=== PATIENT | female | born 1955 | race Caucasian/White ===

== ENCOUNTER 2018-05-31 07:52 | Inpatient (IN) | payer MEDICARE ==
--- NOTE | 2018-05-30 23:30 | NUR ---
CONTINUES RESTLESS/AGITATED AND GRABBING FOR VENT CIRCUITS/LINES.DIPROVAN INCREASED TO 45MCG/KG/MIN.
[2018-05-31] VITALS (58 sets, daily range): BP systolic 71–166; BP diastolic 51–86; BMI 29.1
[~2018-05-31] VITALS: Ht 167.6 cm; Wt 80.5 kg
--- NOTE | 2018-05-31 | NUR ---
REASSESSMENT COMPLETED WITH NO CHANGES OBSERVED. ROUSES SLIGHTLY TO TACTILE STIMULI WITH HEAD AND EXTREMITY MOVEMENT. ETT @22CM MID LIPLINE/SECURED/PATENT AND CONNECTED TO [facility] VENT WITH SETTINGS ORDERED. RESP EVEN AND UNLABORED. NO DISTRESS OBSERVED. VSS. SR UP X 2. WRIST RESTRAINTS INTACT FOR PATIENT SAFETY.
--- NOTE | 2018-05-31 08:05 | NUR ---
ARRIVED VIA EMS FROM [facility] [place]. INGESTION OF UNKNOWN SUBSTANCE/AMOUNT. SI ATTEMPT. PT INTUBATED/VENTILATED ON ARRIVAL. CVL TO R GROIN, PIV TO L HAND. YANES AND OG IN PLACED. NSR ON MONITOR, BP 148/72, SAT 100%, HR 77. NOREPI GTT @ 15MCG/MIN, DOPAMINE GTT AT 20MCG/MIN.
--- NOTE | 2018-05-31 08:13 | NUR ---
SODIUM BICARB [address] GATES
--- NOTE | 2018-05-31 08:15 | NUR ---
PROPOFOL GTT STARTED AT 8MCG/MIN PER DR GATES
--- NOTE | 2018-05-31 08:20 | NUR ---
DOPAMINE GTT DECREASED TO 10MCG/MIN
--- NOTE | 2018-05-31 08:44 | NUR ---
DOPAMINE GTT OFF
[2018-05-31] MEDS ORDERED: NEURONTIN 300300 MG PO (08:54)
[2018-05-31] MEDS ORDERED: CYMBALTA30 MG (08:54)
[2018-05-31] MEDS ORDERED: PROPRANOLOL HCL20 MG (08:55)
[2018-05-31] MEDS ORDERED: AMRIX30 MG (08:55)
[2018-05-31] MEDS ORDERED: PRAVACHOL20 MG (08:55)
[2018-05-31] MEDS ORDERED: SYNTHROID50 MCG (08:56)
[2018-05-31 09:24] LABS: BASOPHILS 0.2 % (0-2); EOSINOPHILS 0 % (0-7); HEMATOCRIT 37.4 % (36.0-48.0); HEMOGLOBIN 12.6 g/dL (12-16); IMMATURE GRANULOCYTES 0.3 % (0-5); LYMPHOCYTES 15.2 % (15-50); MCH 29.9 pg (26.0-34.0); MCHC 33.7 g/dL (31.0-37.0); MCV 88.6 fL (80.0-100.0); MEAN PLATELET VOLUME 9.7 fL (7.4-10.4); MONOCYTES 7.8 % (2-11); NEUTROPHILS 76.5 % (40-80); PLATELET COUNT 216 10x3/uL (130-400); RBC 4.22 10x6/uL (4.00-5.40); RDW 13.2 % (11.5-14.5); WBC 15.9 10x3/uL (4.8-10.8)
--- NOTE | 2018-05-31 09:35 | NUR ---
BP 166/86, NOREPI DECREASED TO 10MCG/MIN
--- NOTE | 2018-05-31 09:57 | NUR ---
SPOKE WITH CORIE AT POISON CONTROL PER DR. GATES AT THIS TIME.
--- NOTE | 2018-05-31 10:17 | NUR ---
BP137/62, NOREPI DECREASED TO 8MCG/MIN
--- NOTE | 2018-05-31 10:40 | NUR ---
PROPOFOL INCREASED TO 10MCG/MIN
[2018-05-31 11:34] LABS: ALBUMIN 2.6 g/dL (3.4-5.0); ALKALINE PHOSPHATASE 94 U/L (46-116); ALT (SGPT) 139 U/L (10-68); BILIRUBIN - TOTAL 0.28 mg/dL (0.2-1.3); CALC OSMOLALITY 292 mosm/kg (275-300); CARBON DIOXIDE 27.3 mmol/L (21.0-32.0); CHLORIDE - SERUM 108 mmol/L (98-107); CREATININE - SERUM 1.1 mg/dL (0.6-1.3); GLUCOSE 170 mg/dL (74-106); POTASSIUM - SERUM 3.6 mmol/L (3.5-5.1); PROTEIN - SERUM 5.6 g/dL (6.4-8.2); SODIUM 143 mmol/L (136-145); TROPONIN-I < 0.017 ng/mL (0.000-0.060); UREA NITROGEN 23 mg/dL (7-18); eGFR NON AFRICAN AMERICAN 53 mL/min (90-120)
[2018-05-31 11:37] LABS: CALCIUM 6.8 mg/dL (8.5-10.1); CKMB 405.4 U/L (0.0-3.6); CREATINE KINASE 21665 UL (21-215)
--- NOTE | 2018-05-31 11:40 | NUR ---
CRITICAL LAB CALLED BY [employer] TECH AT THIS TIME, CRITICAL CALCIUM OF 6.8. NOTIFIED EDM AT THIS TIME.
--- NOTE | 2018-05-31 11:50 | NUR ---
ARRIVED TO UNIT AT THIS TIME VIA STRETCHER FROM ER. PT ON VENT. NO ACUTE DISTRESS NOTED. PT FOLLOWS COMMANDS. WILL CONTINUE PLAN OF CARE.
--- NOTE | 2018-05-31 12:21 | NUR ---
PT SON JANEEN HERE, HISTORY RECIEVED FROM PTS SON. PTS SON STATES THAT PT HAS A HISTORY OF METH ABUSE. EMERGENCY CONTACT INFORMATION RECIEVED, CODE WORD ESTABLISHED.
[2018-05-31 12:40] LABS: UDS - AMPHET POSITIVE QUAL (NEGATIVE); UDS - BARB NEGATIVE QUAL (NEGATIVE); UDS - BENZO POSITIVE QUAL (NEGATIVE); UDS - COCAINE NEGATIVE QUAL (NEGATIVE); UDS - OPIATE NEGATIVE QUAL (NEGATIVE); UDS - PCP NEGATIVE QUAL (NEGATIVE); UDS - THC NEGATIVE QUAL (NEGATIVE)
[2018-05-31 12:46] LABS: APPEARANCE CLOUDY (CLEAR); COLOR YELLOW (YELLOW)
[2018-05-31 12:47] LABS: BILIRUBIN NEGATIVE (NEGATIVE); GLUCOSE NEGATIVE (NEGATIVE); KETONE NEGATIVE (NEGATIVE); NITRITE POSITIVE (NEGATIVE); PROTEIN 2+ mg/dL (NEGATIVE); UROBILINOGEN NORMAL (NORMAL)
[2018-05-31 12:48] LABS: BACTERIA MODERATE /hpf (NONE SEEN); EPITHELIAL CELLS 0-5 /hpf (0-5); RED CELLS - URINE 0-5 /hpf (0-5)
[2018-05-31 14:05] LABS: BASOPHILS 0.2 % (0-2); EOSINOPHILS 0 % (0-7); HEMATOCRIT 34.9 % (36.0-48.0); HEMOGLOBIN 11.6 g/dL (12-16); IMMATURE GRANULOCYTES 0.4 % (0-5); LYMPHOCYTES 18.6 % (15-50); MCH 29.5 pg (26.0-34.0); MCHC 33.2 g/dL (31.0-37.0); MCV 88.8 fL (80.0-100.0); MEAN PLATELET VOLUME 9.8 fL (7.4-10.4); MONOCYTES 10.6 % (2-11); NEUTROPHILS 70.2 % (40-80); PLATELET COUNT 210 10x3/uL (130-400); RBC 3.93 10x6/uL (4.00-5.40); RDW 13.1 % (11.5-14.5); WBC 13.7 10x3/uL (4.8-10.8)
--- NOTE | 2018-05-31 14:06 | NUR ---
NO ACUTE DISTRESS NOTED. NO CHANGE. TURNED Q2H. LEVOPHED AND DIPROVAN TITRATED TO ORDER. WILL CONTINUE PLAN OF CARE.
[2018-05-31 14:42] LABS: ALBUMIN 2.6 g/dL (3.4-5.0); ALKALINE PHOSPHATASE 92 U/L (46-116); ALT (SGPT) 145 U/L (10-68); BILIRUBIN - TOTAL 0.29 mg/dL (0.2-1.3); CALC OSMOLALITY 293 mosm/kg (275-300); CALCIUM 7.1 mg/dL (8.5-10.1); CARBON DIOXIDE 29.6 mmol/L (21.0-32.0); CHLORIDE - SERUM 108 mmol/L (98-107); CKMB 263.4 U/L (0.0-3.6); CREATININE - SERUM 1.1 mg/dL (0.6-1.3); GLUCOSE 159 mg/dL (74-106); MAGNESIUM - SERUM 2.1 mg/dL (1.8-2.4); POTASSIUM - SERUM 3.6 mmol/L (3.5-5.1); PROTEIN - SERUM 5.2 g/dL (6.4-8.2); SODIUM 144 mmol/L (136-145); TROPONIN-I 0.016 ng/mL (0.000-0.060); UREA NITROGEN 24 mg/dL (7-18); eGFR NON AFRICAN AMERICAN 53 mL/min (90-120)
[2018-05-31 14:46] LABS: CREATINE KINASE 20858 UL (21-215)
--- NOTE | 2018-05-31 16:15 | NUR ---
EPINEPHERINE STARTED AT THIS TIME PER DR COTO ORDERS WELL WILL TITRATE LEVOPHED OFF ALSO PER ORDERS. WILL CONTINUE PLAN OF CARE.
--- NOTE | 2018-05-31 18:14 | NUR ---
NO ACUTE DISTRESS NOTED. NO CHANGE. PT LYING IN BED ON VENT. FOLLOWS COMMANDS. TURNED Q2H. WILL CONTINUE PLAN OF CARE.
--- NOTE | 2018-05-31 18:35 | NUR ---
HARISH CARE PROVIDED AT THIS TIME WITH PARTIAL LINEN CHANGE. PT NOTED TO HAVE SMEAR BROWN BOWEL MOVEMENT. PT TURNED Q2H. FOLLOWS COMMANDS. NO ACUTE DISTRESS NOTED. WILL CONTINUE PLAN OF CARE.
--- NOTE | 2018-05-31 19:00 | NUR ---
PT SEDATED, EYES CLOSED. ROUSES SOME TO TACTILE STIMULI, RESPONDS WITH SOME HEAD AND EXTREMITY MOVEMENT. HOB UP 35 DEGREES. 7.5 ETT INTACT/PATENT AND SECURED AT 22CM MID LIP LINE. PLACEMENT VERIFIED WITH RT NOTES. ETT CONNECTED TO MECHANICAL VENT WITH SETTINGS ORDERED. LUNGS CTA, RESP EVEN AND UNLABORED. OG INTACT/SECURED CONNECTED TO LOW INTERMITTENT SUCTION WITH NO DRAINAGE OBSERFVED. VAP PROTOCOL OBSERVED. IV FLUIDS/TUBING LABELED/DATED AND CURRENT. MONITORS CONNECTED TO PATIENT WITH ALARMS SET. SIDE RAILS UP X 2 . SOFT WRIST RESTRAINTS INTACT BILAT FOR PT SAFETY. RESTRAINT AREAS/SKIN/PULSES AND BILAT CAP REFILL CHECKED AND LESS THAN 3 SECONDS. ASSESSED,
--- NOTE | 2018-05-31 21:00 | NUR ---
RESTING WITH EYES CLOSED, ROUSES SLIGHTLY TO TACTILE STIMULI WITH HEAD AND EXTREMITY MOVEMENT. ETT SECURED/PATENT AND CONNECTED TO [facility] VENT WITH SETTINGS ORDERED. NO CHANGES OBSERVED. SR UP X 2.
--- NOTE | 2018-05-31 22:00 | NUR ---
LEVOPHED TURNED OFF AT THIS TIME. B/P 119/61
--- NOTE | 2018-05-31 23:00 | NUR ---
REASSESSMENT COMPLETED PER FLOWSHEET WITH NO CHANGES OBSERVED. ETT SECURED/PATENT/CONNECTED TO [facility] VENT WITH SETTINGS ORDERED, NO DISTRESS OBSERVED.
[2018-06-01] VITALS (95 sets, daily range): BP systolic 75–143; BP diastolic 46–961; Ht 167.6 cm; Wt 80.5 kg
--- NOTE | 2018-06-01 01:00 | NUR ---
RESTING WITH EYES CLOSED, ROUSES TO TACTILE STIMULI. ETT SECURED/PATENT/CONNECTED TO [facility] VENT WITH SETTINGS ORDERED. NO DISTRESS OBSERVED. VSS. SR UP X 2 HOB UP 30 DEGREES
--- NOTE | 2018-06-01 01:00 | NUR ---
RESTING WITH EYES CLOSED. TURNED AND REPOSITIONED, DEPENDANT FOR ALL ADLS. NO DISTRESS OBSERVED.
--- NOTE | 2018-06-01 03:00 | NUR ---
REASSESSMENT COMPLETED PER FLOW SHEET WITH NO CHANGES OBSERVED. VSS. ETT PATENT/SECURED AND CONNECTED TO [facility] VENT WITH SETTINGS ORDERS. OG INTACT/SECURE/PATENT CONNECTED TO LOW INT SUCTION WITH NO DRAINAGE OBSERVED. PLACEMENT VERIFIED VIA AUSC. N ODISTRESS OBSERVED. SR UP X 2
--- NOTE | 2018-06-01 03:00 | NUR ---
REASSESSMENT COMPLETED PER FLOWSHEET NO CHANGES OBSERVED. NO DISTRESS OBSERVED.
--- NOTE | 2018-06-01 04:30 | NUR ---
NOTIFIED BY RT OF RESP RATE VENT SETTING CHANGE TO 12
[2018-06-01 05:06] LABS: BASOPHILS 0.3 % (0-2); EOSINOPHILS 0.2 % (0-7); HEMATOCRIT 31.7 % (36.0-48.0); HEMOGLOBIN 10.6 g/dL (12-16); IMMATURE GRANULOCYTES 0.3 % (0-5); LYMPHOCYTES 30.3 % (15-50); MCH 29.4 pg (26.0-34.0); MCHC 33.4 g/dL (31.0-37.0); MCV 88.1 fL (80.0-100.0); MEAN PLATELET VOLUME 10.1 fL (7.4-10.4); MONOCYTES 6.9 % (2-11); PLATELET COUNT 208 10x3/uL (130-400); RDW 13.1 % (11.5-14.5); WBC 11.7 10x3/uL (4.8-10.8)
--- NOTE | 2018-06-01 05:08 | NUR ---
RESTING WITH EYES CLOSED, ROUSES TO TACTILE STIMULI. EYES OPEN BRIEFLY. VSS. SR UP X 2. ETT INTACT/PATENT/SECURED CONNECTED TO [facility] VENT WITH SETTINGS ORDERED.
[2018-06-01 05:55] LABS: ALBUMIN 2.1 g/dL (3.4-5.0); ALKALINE PHOSPHATASE 83 U/L (46-116); ALT (SGPT) 122 U/L (10-68); BILIRUBIN - TOTAL 0.21 mg/dL (0.2-1.3); CALCIUM 7.3 mg/dL (8.5-10.1); CARBON DIOXIDE 31.3 mmol/L (21.0-32.0); CHLORIDE - SERUM 102 mmol/L (98-107); CREATININE - SERUM 0.9 mg/dL (0.6-1.3); GLUCOSE 179 mg/dL (74-106); PROTEIN - SERUM 4.9 g/dL (6.4-8.2); SODIUM 141 mmol/L (136-145); eGFR NON AFRICAN AMERICAN 67 mL/min (90-120)
[2018-06-01 05:59] LABS: CALC OSMOLALITY 285 mosm/kg (275-300); CREATINE KINASE 12470 UL (21-215); PHOSPHOROUS 1.4 mg/dL (2.5-4.9); POTASSIUM - SERUM 2.7 mmol/L (3.5-5.1); UREA NITROGEN 14 mg/dL (7-18)
--- NOTE | 2018-06-01 06:28 | NUR ---
ABIGAIL HAY APN PAGED RELATED TO ABNORMAL SERUM K+ AND PHOS
--- NOTE | 2018-06-01 07:15 | NUR ---
REPORT RECEIVED. ASSESSMENT COMPLETE PER FLOW SHEET. VSS. PT RESTING COMFORTABLY VSS ORAL ENDOTRACH CARE ADM WILL CONTINUE TO MONITOR
[2018-06-01 08:13] LABS: CKMB 27.7 U/L (0.0-3.6)
--- NOTE | 2018-06-01 08:47 | NUR ---
U/S AT BEDSIDE DENIES NEEDS. WILL CONTINUE TO MONITOR
--- NOTE | 2018-06-01 09:27 | NUR ---
DR WHEATLEY AT BEDSIDE. GIVEN UDPATE. NEW ORDERS RECEIVED. WILL ADM.
--- NOTE | 2018-06-01 11:15 | NUR ---
REASSESSMENT COMPLETE PER FLOW SHEET. VSS NO NEW CHANGES IWLL CONTINUE TO MONITOR
--- NOTE | 2018-06-01 13:15 | NUR ---
COMPLETE BB LINEN CHANGE ADM. LARGE BM NOTED. WILL CONTINUE TO MONITOR
--- NOTE | 2018-06-01 15:15 | NUR ---
REASSESSMENT COMPLETE PER FLOW SHEET. VSS. NO NEW CHANGES WILL CONTINUE TO MONITOR
--- NOTE | 2018-06-01 17:00 | NUR ---
DR WHEATLEY AT BEDSIDE ORDER TO KEEP EPI AT .5 OVERNIGHT AT THIS TIME SET RATE
--- NOTE | 2018-06-01 19:00 | NUR ---
RECEIVED PATIENT IN BED, RESTING WITH EYES CLOSED. ROUSES SOME TO VERBAL STIMUI WITH SHORT PERIODS OF EYE OPENING, RESPONDS TO QUESTIONS WITH A NOD OF HEAD. HOB UP 40 DEGREES. ETT INTACT/PATENT/SECURED AND CONNECTED TO [facility] VENT WITH SETTINGS ORDERED. RESP EVEN AND UNLABORED. VAP PROTOCOL OBSERVERED. OGT INTACT/SECURED/PATENT CONNECTEDT TO LOW INT SUCTION WITH NO DRAINAGE OBSERVED. VSS. NO SIGNS OF DISTRESS OBSERVED. MONITORS CONNECTED TO PATIENT WITH ALARMS SET. IV TUBING/FLUIDS DATED LABELED AND CURRENT. SR UP X 2
--- NOTE | 2018-06-01 19:00 | NUR ---
REPORT RECEIVED. CARE ASSUMED. RECEIVED PATIENT AWAKE AND ALERT. ORIENTED TO PERSON AND PLACE WITH SOME CONFUSION TO DATE/TIME AND SITUATION. PLEASANT. RE ORIENTS WELL , WITH SHORT TERM MEMORY DEFECIT OSERVED. SPEECH CLEAR AND APPROPRIATE. PERRL. ACCOUNTANT CONTROLLER = BILAT. FACE/SMILE SYMETRICAL. DENIES PAIN/HEADACHE/BLURRED VISION. VSS. BED IN LOW POSITOIN. SR UP X 2. BED ALARM ON AND FUNCTIONING. PT REMINDED TO NOT ATTEMPT SELF TRANSFERS. CALL LIGHT IN REACH, REORIENTED TO USE OF CALL LIGHT AND VERBALIZED UNDERSTANDING.
--- NOTE | 2018-06-01 21:00 | NUR ---
HOB UP 40 DEGREES. RESTING WITH EYES CLOSED. ROUSES TO VERBAL STIMULI WITH SOME EYE OPENING AND EXTREMITY MOVEMENT. NO CHANGES . SR UP X 2
--- NOTE | 2018-06-01 23:00 | NUR ---
REASSESSMENT COMPLETED PER FLOW SHEET WITH NO CHANGES OBSERVED. NO DISTRESS OBSERVED.HOB UP 40 DEGREES
[2018-06-02] VITALS (52 sets, daily range): BP systolic 82–136; BP diastolic 53–93
--- NOTE | 2018-06-02 01:00 | NUR ---
RESTING WITH EYES CLOSED. SR UP X 2. VSS. NO DISTRESS OBSERVED
[2018-06-02 01:04] LABS: PHOSPHOROUS 2.3 mg/dL (2.5-4.9); POTASSIUM - SERUM 3.7 mmol/L (3.5-5.1)
--- NOTE | 2018-06-02 03:00 | NUR ---
REASSESSMENT COMPLETED PER FLOWSHEET. NO CHANGES OBSERVED. VSS. HOB ELEVATED 40 DEGREES. NO DISTRESS OBSERVED
[2018-06-02 04:48] LABS: BASOPHILS 0.4 % (0-2); EOSINOPHILS 0.8 % (0-7); HEMATOCRIT 28.4 % (36.0-48.0); HEMOGLOBIN 9.8 g/dL (12-16); IMMATURE GRANULOCYTES 0.2 % (0-5); LYMPHOCYTES 32.6 % (15-50); MCH 29.7 pg (26.0-34.0); MCHC 34.5 g/dL (31.0-37.0); MONOCYTES 7.5 % (2-11); NEUTROPHILS 58.5 % (40-80); RDW 13.3 % (11.5-14.5); WBC 9.3 10x3/uL (4.8-10.8)
[2018-06-02 04:49] LABS: MCV 86.1 fL (80.0-100.0); PLATELET COUNT 151 10x3/uL (130-400)
[2018-06-02 04:56] LABS: CALCIUM 7.2 mg/dL (8.5-10.1); CARBON DIOXIDE 27.5 mmol/L (21.0-32.0); CHLORIDE - SERUM 105 mmol/L (98-107); POTASSIUM - SERUM 3.2 mmol/L (3.5-5.1); SODIUM 143 mmol/L (136-145)
--- NOTE | 2018-06-02 05:00 | NUR ---
RESTING WITH EYES CLOSED. ROUSES EASILY. VSS. NO DISTRESS OBSERVED. SR UP X2
[2018-06-02 05:07] LABS: CALC OSMOLALITY 284 mosm/kg (275-300); CREATININE - SERUM 0.6 mg/dL (0.6-1.3); GLUCOSE 117 mg/dL (74-106); UREA NITROGEN 9 mg/dL (7-18); eGFR NON AFRICAN AMERICAN > 90 mL/min (90-120)
--- NOTE | 2018-06-02 07:33 | NUR ---
REPORT RECEIVED. PT IS ON VENT. 7.5 AND AT 21 MIDLINE MOUTH. PT IS ON COMPLETE ASSIST. O2 AT 40%. PT IN SOFT WRIST RESTRAINTS. PT CLEANED UP AFTER SMALL BM AND REPOSITIONED IN BED. YANSE IN PLACE. PT HAS EPI AND PROPOFOL INFUSING. SEE IV FLOWSHEET. BED IN LOWEST POSITION. CALL LIGHT IN REACH.
--- NOTE | 2018-06-02 09:00 | NUR ---
MORNING MEDS ADMINISTERED. PT REPOSITIONED. NO NEEDS AT THIS TIME. CALL LIGHT IN REACH.
--- NOTE | 2018-06-02 11:10 | NUR ---
DR WHEATLEY AT PT BEDSIDE. STATED TO TURN OF PROPOFOL AND SEE HOW PT DOES. PT STILL ON VENT. ON ASSIST MODE. WILL CONTINUE TO MONITOR.
[2018-06-02 12:52] LABS: CREATINE KINASE 6775 UL (21-215)
--- NOTE | 2018-06-02 13:00 | NUR ---
DR WHEATLEY CALLED. UPDATED ON PT'S STATUS. GAVE ORDER TO OBTAIN ABG. WILL NOTIFY RT.
--- NOTE | 2018-06-02 13:15 | NUR ---
DR CORRY WRIGHT. GIVEN UPDATE ON ABG RESULTS. NEW ORDERS RECEIVED. RT UPDATED. PROPOFOL ADMINISTERED PER PROTOCOL.
--- NOTE | 2018-06-02 13:51 | NUR ---
PATIENT CPAP 5/5 40% FOR 30 MINS. BASED ON P02 OF 46 AND SPO2 OF 83% UNABLE TO EXTUBATE.
--- NOTE | 2018-06-02 15:00 | NUR ---
POTASSIUM GIVEN PER ELECTROLYTE PROTOCOL. PT RESTING QUIETLY. REPOSITIONED. BED IN LOWEST POSITION. CALL LIGHT IN REACH. WILL CONTINUE TO MONITOR.
--- NOTE | 2018-06-02 17:08 | NUR ---
PT IS RESTING QUIETLY. NOW ON DROPLET PRECAUTIONS PER INFECTION CONTROL AND POSSIBLE MRSA IN SPUTUM. WILL CONTINUE TO MONITOR.
--- NOTE | 2018-06-02 17:46 | MORECARE ---
CASE MANAGEMENT DISCHARGE SUMMARY PATIENT: MIMI WOLF UNIT: [id number] ADM DATE: 05/31/18 AGE: 62 : 57 SEX: F ROOM/BED: D.2302 AUTHOR: BRIJESH FAYE PHYSICIAN: REFERRING PHYSICIAN: ILANA STEINER MD DATE OF SERVICE: 06/02/18 Discharge Plan Patient Name: MIMI WOLF Facility: [facility]:[place] : 1955 Planned Disposition: Anticipated Discharge Date: Discharge Date: Expected LOS: Initial Reviewer: [email or web address] Initial Review Date: 05/31/2018 Generated: 06/02/18 6:46 pm Patient Name: MIMI WOLF Page [phone] at 1746 All edits/amendments must be made on the electronic document DICTATION DATE: 06/02/181744 GAS ENGINE MECHANIC: ARMEN 06/02/181744 RPT#: [id number] DC DATE: STATUS: ADM IN [facility] [address] [place] [address] END OF REPORT
--- NOTE | 2018-06-02 17:54 | MORECARE ---
CASE MANAGEMENT DISCHARGE SUMMARY PATIENT: MIMI WOLF UNIT: [id number] ADM DATE: 05/31/18 AGE: 62 : 57 SEX: F ROOM/BED: D.2302 AUTHOR: BRIJESH FAYE PHYSICIAN: REFERRING PHYSICIAN: ILANA STEINER MD DATE OF SERVICE: 06/02/18 Discharge Plan Patient Name: MIMI WOLF [facility] : 1955 Planned Disposition: Anticipated Discharge Date: Discharge Date: Expected LOS: Initial Reviewer: [email or web address] Initial Review Date: 05/31/2018 Generated: 06/02/18 6:54 pm Comments DCP- Discharge Planning Updated by [email or web address]: Christina Valenzuela on 06/02/18 4:[address] CM attempted to visit with patient regarding discharge planning/ needs. Patient currently on vent no family available. CM will continue to follow and assist as needed with discharge planning / needs. Last DP export: 06/02/18 4:46 pm Patient Name: MIMI WOLF Page [id number] at 1754 All edits/amendments must be made on the electronic document DICTATION DATE: 06/02/181753 DOUGH MOLDER: ARMEN 06/02/181753 RPT#: [id number] DC DATE: STATUS: ADM IN [facility] [address] [place] [address] END OF REPORT
--- NOTE | 2018-06-02 19:00 | NUR ---
REPORT RECEIVED. RECEIVED PT RESTING IN BED WITH EYES CLOSED. EASILY ROUSED, ANSWERS QUESTIONS APPROPRIATELY WITH NOD OF HEAD. ETT INTACT/SECURE/PATENT CONNECTED TO [facility] VENT WITH SETTINGS ORDERED. HOB UP 45 DEGREES. VAP PROTOCOL OBSERVED. OGT INTACT/PATENT/SECURED. IV FLUIDS/TUBING DATED/LABELED AND CURRENT. MONITORS CONNECTED TO PATIENT WITH ALARMS SET. DEPENDANT ON STAFF FOR ADLS. TURNED AND REPOSITIONED WITH SOME ASSIST FROM PATIENT. SR UP X 2
--- NOTE | 2018-06-02 21:00 | NUR ---
RESTING WITH EYES CLOSED. ROUSES EASILY. REPOSITIONED. VSS. NO DISTRESS OBSERVED.
--- NOTE | 2018-06-02 23:52 | NUR ---
CLIENT AWAKE/ CONFUSED/AGITATED/ RESTLESS. REORIENTED/ REPOSITIONED. DIPROVAN INCREASED 40MCG/KG/MIN . REASSESSMENT COMPLETED PER FLOWSHEET WITH NO DISTRESS OBSERVED. SR UP X 2. BILAT WRIST RESTRAINTS INTACT AND SECURED FOR PATIENTS SAFETY/ TO PREVENT SELF EXTUBATION AND PULLING AT LINES. CONTINUES IN DROPLET ISOLATION WITH PRECAUTIONS OBSERVED.
[2018-06-03] VITALS (24 sets, daily range): BP systolic 93–146; BP diastolic 49–96
--- NOTE | 2018-06-03 01:00 | NUR ---
RESTING QUIETLY WITH EYES CLOSED. NO DISTRESS OBSERVED
--- NOTE | 2018-06-03 03:00 | NUR ---
REASSESSMENT COMPLETED PER FLOW SHEET. NO CHANGES OBSERVED. VSS
--- NOTE | 2018-06-03 04:39 | NUR ---
CHANGE FIO2 TO 40% PER MORNING ABG RESULT
--- NOTE | 2018-06-03 05:00 | NUR ---
RESTING QUIETLY WITH EYES CLOSED. VSS. NO DISTRESS OBSERVED. SR UP X 2.
[2018-06-03 05:03] LABS: BASOPHILS 0.3 % (0-2); EOSINOPHILS 1.7 % (0-7); HEMATOCRIT 31.2 % (36.0-48.0); HEMOGLOBIN 10.3 g/dL (12-16); IMMATURE GRANULOCYTES 0.1 % (0-5); LYMPHOCYTES 21.3 % (15-50); MCH 29.1 pg (26.0-34.0); MEAN PLATELET VOLUME 10.4 fL (7.4-10.4); MONOCYTES 9.7 % (2-11); NEUTROPHILS 66.9 % (40-80); RBC 3.54 10x6/uL (4.00-5.40); RDW 13.2 % (11.5-14.5); WBC 9.2 10x3/uL (4.8-10.8)
[2018-06-03 05:12] LABS: MCV 88.1 fL (80.0-100.0); PLATELET COUNT 197 10x3/uL (130-400)
[2018-06-03 05:23] LABS: CALC OSMOLALITY 281 mosm/kg (275-300); CALCIUM 7.9 mg/dL (8.5-10.1); CARBON DIOXIDE 27.1 mmol/L (21.0-32.0); CHLORIDE - SERUM 106 mmol/L (98-107); CREATININE - SERUM 0.6 mg/dL (0.6-1.3); GLUCOSE 89 mg/dL (74-106); POTASSIUM - SERUM 3.4 mmol/L (3.5-5.1); SODIUM 143 mmol/L (136-145); UREA NITROGEN 7 mg/dL (7-18); eGFR NON AFRICAN AMERICAN > 90 mL/min (90-120)
--- NOTE | 2018-06-03 07:00 | NUR ---
REPORT RECEIVED. PT ON DROPLET PRECAUTIONS. PT SEDATED AND ON VENT. VSS. ASSESSMENT PERFORMED. YANES CATHETER IN PLACE. CLEAR YELLOW URINE. PERIPHERAL IVS X3 PATENT. SEE IV FLOWSHEET. SOFT WRIST RESTRAINTS IN PLACE. SEE FLOWSHEET. SIDE RAILS UP X2. BED IN LOWEST POSITION. BED ALARM ON. WILL CONTINUE TO MONITOR.
--- NOTE | 2018-06-03 08:30 | NUR ---
DR WHEATLEY BEDSIDE. NEW ORDERS FOR RT. RT NOTIFIED. WILL CONTINUE TO MONITOR.
--- NOTE | 2018-06-03 09:17 | NUR ---
Nutrition follow-up: Intubated, sedated; restless at this time Nurse reports possible extubation today OGT->LIWS Labs reviewed Wt: 177# If unable to extubated, recommend starting Pulmocare @ 25 ml/hr with increase to goal rate of 50 ml/hr with 30 ml H2O flush Q hour. RDN following.
--- NOTE | 2018-06-03 10:35 | NUR ---
PT EXTUBATED BY RT PER DR WHEATLEY'S ORDERS. PT ON O2 AT 3L VIA NC. O2 SAT CURRENTLY 96%. PT ENCOURAGED TO COUGH AND DEEP BREATH. BP 110/67 AND HR 7O. PRIOR TO EXTUBATION, PT HAD SMALL BOWEL MOVEMENT. BROWN AND SOFT. CLEANED UP AND REPOSITIONED. WILL CONTINUE TO MONITOR.
--- NOTE | 2018-06-03 12:30 | NUR ---
PT ALERT. ABLE TO FOLLOW COMMANDS. REORIENTED TO LOCATION AND SITUATION. COUGHING. WORKING ON IS. VSS. NO COMPLAINTS OR NEEDS AT THIS TIME. WILL CONTINUE TO MONITOR.
--- NOTE | 2018-06-03 14:00 | NUR ---
PT RESTING QUIETLY. VSS.
--- NOTE | 2018-06-03 14:56 | NUR ---
1015-PER DR. WHEATLEY PATIENT EXTUBATED TO 3L/NC.
--- NOTE | 2018-06-03 15:19 | NUR ---
SPEECH THERAPIST IN WITH PT.
--- NOTE | 2018-06-03 17:30 | NUR ---
PT ASSISTED TO CHAIR TO EAT DINNER. [facility] SOFT. THIN LIQUIDS. WILL MONITOR.
--- NOTE | 2018-06-03 18:14 | NUR ---
PT ATE ABOUT 10% OF HER DINNER.
--- NOTE | 2018-06-03 19:58 | NUR ---
PT RECEIVED WITH EYES CLOSED AND CHEST RISING. NO S/S OF DISTRESS. EASILY AWOKEN TO VERBAL STIMULI. IV TO R AND L WRIST, R UPPER ARM SALINE LOCKED. DENIES PAIN. CALL LIGHT IN REACH. WILL CONTINUE TO OBSERVE.
--- NOTE | 2018-06-03 21:15 | NUR ---
PT WITH EYES AND CHEST RISING. EASILY AROUSED. NO S/S OF DISTRESS. NO NEEDS MADE KNOWN. CALL LIGHT IN REACH. WILL CONTINUE TO OBSERVE.
--- NOTE | 2018-06-03 23:30 | NUR ---
REASSESSMENT COMPLETE, SEE FLOW SHEET. NO CHANGES NOTED.
[2018-06-04] VITALS (24 sets, daily range): BP systolic 94–146; BP diastolic 58–91
--- NOTE | 2018-06-04 01:59 | NUR ---
PT RESTING WITH EYES CLOSED AND CHEST RISING. TURNS SELF INDEPENDANTLY. N/C AT 3LPM. VSS. CALL LIGHT IN REACH. WILL CONTINUE TO OBSERVE.
--- NOTE | 2018-06-04 03:48 | NUR ---
REASSESSMENT COMPLETED, SEE FLOW SHEET. WILL CONTINUE TO OBSERVE.
[2018-06-04 05:08] LABS: ALBUMIN 2.1 g/dL (3.4-5.0); ALKALINE PHOSPHATASE 76 U/L (46-116); ALT (SGPT) 89 U/L (10-68); CALC OSMOLALITY 280 mosm/kg (275-300); CALCIUM 7.8 mg/dL (8.5-10.1); CHLORIDE - SERUM 106 mmol/L (98-107); CREATININE - SERUM 0.7 mg/dL (0.6-1.3); GLUCOSE 90 mg/dL (74-106); POTASSIUM - SERUM 3.4 mmol/L (3.5-5.1); PROTEIN - SERUM 5.5 g/dL (6.4-8.2); SODIUM 142 mmol/L (136-145); UREA NITROGEN 8 mg/dL (7-18); eGFR NON AFRICAN AMERICAN 90 mL/min (90-120)
[2018-06-04 05:11] LABS: CKMB 1.9 U/L (0.0-3.6); CREATINE KINASE 1757 UL (21-215)
--- NOTE | 2018-06-04 05:45 | NUR ---
PT RECEIVED POTASSIUM POWDER PER ELECTROLYT PROTOCOL FOR K 3.4. PT TOLERATED WELL. WILL CONTINUE TO OBSERVE.
[2018-06-04 06:03] LABS: BASOPHILS 0.6 % (0-2); EOSINOPHILS 2.9 % (0-7); HEMATOCRIT 33.3 % (36.0-48.0); HEMOGLOBIN 11.2 g/dL (12-16); IMMATURE GRANULOCYTES 0.4 % (0-5); LYMPHOCYTES 40.3 % (15-50); MCH 29.5 pg (26.0-34.0); MCHC 33.6 g/dL (31.0-37.0); MCV 87.6 fL (80.0-100.0); MEAN PLATELET VOLUME 9.9 fL (7.4-10.4); MONOCYTES 9.1 % (2-11); NEUTROPHILS 46.7 % (40-80); PLATELET COUNT 217 10x3/uL (130-400); RDW 13.2 % (11.5-14.5); WBC 6.9 10x3/uL (4.8-10.8)
--- NOTE | 2018-06-04 07:00 | NUR ---
PATIENT RESTING IN BED AWAKE AND ALERT. CALL ROSAS IN REACH. VSS. NSR. NO SKIN BREAKDOWN NOTED. JOSHUA WRIST PIV'S SALINE LOCKED. O2 INFUSING AT 3L VIA NC. WILL CONTINUE TO MONITOR
--- NOTE | 2018-06-04 09:00 | NUR ---
PATIENT RESTING IN BED WITH STABLE VS ON 2L O2 NC. ATE 60% OF BREAKFAST. WILL CONTINUE TO MONITOR
--- NOTE | 2018-06-04 09:39 | NUR ---
Nutrition follow-up: Pt extubated 06/03/18 and diet advanced to regular mechancical soft PO intake ~60% of meals Labs reviewed Wt: 177# RDN following.
--- NOTE | 2018-06-04 11:11 | NUR ---
PATIENT RESTING IN BED WITH STABLE VS. CALL ROSAS IN REACH. NO COMPLAINTS. WILL CONTINUE TO MONITOR
--- NOTE | 2018-06-04 11:54 | EC ---
PATIENT:MIMI WOLF DATE OF SERVICE: 05/31/18 SEX: F MEDICAL RECORD: [id number] DATE OF : [birth year] LOCATION:[facility] D230 AGE OF PATIENT: 62 ADMISSION DATE: 05/31/18 REFERRING PHYSICIAN: INTERPRETING PHYSICIAN: HAYES DURÁN MD ECHOCARDIOGRAM REPORT ECHO CHARGES 4 ECHO COMPLETE Date: 06/01/18 CLINICAL DIAGNOSIS: HYPOTENSION ECHOCARDIOGRAPHIC MEASUREMENTS (adult normal given) AC root (d.<3.7cm) 2.6 cm LV Septum d (<1.2 cm> 0.9 cm Valve Excursion 1.5 cm LV Septum (systole) 1.5 cm Left Atria (s.<4.0cm> 2.8 cm LVPW d(<1.2cm) 1.0 cm RV (d.<2.3cm) 2.8 cm LVPW (sytole) 1.9 cm LV diastole(<5.6CM) 4.4 cm MV E-F(>70mm/sec) cm LV systole 2.4 cm LVOT Diameter 1.7 cm MV exc.(>10mm) cm Est.ejection fraction (50-75%) % DOPPLER: LVIT cm/sec A 103 cm/sec E 82 cm/sec LA cm/sec RVSP 32.0 mmHg LVOT 138 cm/sec AOP1/2T m/s Asc. Ao 219 cm/sec RVOT 74 cm/sec RA cm/sec PA 84 cm/sec AV Gradient Peak 19.2 mmHg AV Mean 8.7 mmHg AV Area 1.4 cm MV Gradient Peak 4.6 mmHg MV Mean 2.0 mmHg MV Area cm COMMENTS: Coordinating Producer: Mary BOJORQUEZ Cardiographer: Sheridan Carrasco TAPE# PACS Pericardial Effusion N DATE OF SERVICE: 06/01/2018 PROCEDURE: Echocardiogram. FINDINGS: 1. Left ventricular chamber size is within normal limits. Left ventricular systolic function is normal. Overall ejection fraction estimated at 60%. 2. Left atrium, right atrium, and right ventricle chamber sizes are within normal limits. 3. Valvular structures have normal structure and motion. ECHOCARDIOGRAM REPORT [id number] MIMI WOLF 4. Doppler interrogation reveals mild tricuspid regurgitation, no other valvular insufficiency or stenosis. Pulmonary systolic pressure is estimated at 32 mmHg. 5. No evidence of pericardial effusion or left ventricular thrombus. TRANSINT:[id number] Voice Confirmation ID: [id number] DOCUMENT ID: [id number] HAYES DURÁN MD at 1154 CC: [id number] DICTATION DATE: 06/01/18 1142 FIRE MANAGER: 06/01/18 1234 ADM IN [place] [id number] [place] [id number]
--- NOTE | 2018-06-04 13:00 | NUR ---
MACHINE WEDGER VIDAL SERRANO CONSULT DOWN TO NURSING HOME. PATIENT RESTING IN BED WITH CALL ROSAS IN REACH. VSS.
--- NOTE | 2018-06-04 14:04 | MORECARE ---
CASE MANAGEMENT DISCHARGE SUMMARY PATIENT: MIMI WOLF UNIT: [id number] ADM DATE: 05/31/18 AGE: 62 : 57 SEX: F ROOM/BED: D.2302 AUTHOR: BRIJESH FAYE PHYSICIAN: REFERRING PHYSICIAN: ILANA STEINER MD DATE OF SERVICE: 06/04/18 Discharge Plan Patient Name: MIMI WOLF [facility] : 1955 Planned Disposition: Anticipated Discharge Date: Discharge Date: Expected LOS: Initial Reviewer: [email or web address] Initial Review Date: 05/31/2018 Generated: 06/04/18 3:04 pm Comments DCP- Discharge Planning Updated by ZACH: Christina Valenzuela on 06/04/18 12:[address] CM awaiting psych eval to see if patient will need psych placement. CM will continue to follow and assist as needed with discharge planning / needs. DCP- Discharge Planning Updated by ZACH: Christina Valenzuela on 06/02/18 4:[address] CM attempted to visit with patient regarding discharge planning/ needs. Patient currently on vent no family available. CM will continue to follow and assist as needed with discharge planning / needs. Last DP export: 06/02/18 4:54 pm Patient Name: MIMI WOLF Page [phone] at 1404 All edits/amendments must be made on the electronic document DICTATION DATE: 06/04/18 1404 PIER MASTER: ARMEN 06/04/18 1404 RPT#: [id number] DC DATE: STATUS: ADM IN [facility] [address] [place] [address] END OF REPORT
--- NOTE | 2018-06-04 15:00 | NUR ---
PATIENT RESTING IN BED C CLL ROSAS IN REACH. NO COMPLAINTS.
--- NOTE | 2018-06-04 16:16 | MORECARE ---
CASE MANAGEMENT DISCHARGE SUMMARY PATIENT: MIMI WOLF UNIT: [id number] ADM DATE: 05/31/18 AGE: 62 : 57 SEX: F ROOM/BED: D.2302 AUTHOR: BRIJESH FAYE PHYSICIAN: REFERRING PHYSICIAN: ILANA STEINER MD DATE OF SERVICE: 06/04/18 Discharge Plan Patient Name: MIMI WOLF [facility] [facility] 1955 Planned Disposition: Anticipated Discharge Date: Discharge Date: Expected LOS: Initial Reviewer: [email or web address] Initial Review Date: 05/31/2018 Generated: 06/04/18 5:16 pm Comments DCP- Discharge Planning Updated by HERBERT Valenzuela on 06/04/18 12:[address] CM awaiting psych eval to see if patient will need psych placement. CM will continue to follow and assist as needed with discharge planning / needs. DCP- Discharge Planning Updated by ZACH: Christina Valenzuela on 06/02/18 4:[address] CM attempted to visit with patient regarding discharge planning/ needs. Patient currently on vent no family available. CM will continue to follow and assist as needed with discharge planning / needs. Last DP export: 06/04/18 1:04 pm Patient Name: MIMI WOLF Page [phone] at 1616 All edits/amendments must be made on the electronic document DICTATION DATE: 06/04/18 1616 RAIL CAR DRIVER: ARMEN 06/04/18 1616 RPT#: [id number] DC DATE: STATUS: ADM IN [facility] [address] [place] [address] END OF REPORT
--- NOTE | 2018-06-04 16:44 | NUR ---
DR. RAMIREZ GAVE CLEAR FOR PATIENT TO TRANSFER TO INPATIENT PSYCH. TECHNICAL SALES REPRESENTATIVE NOTIFIED.
--- NOTE | 2018-06-04 17:03 | NUR ---
ACCIDENTALLY PUT IN NURSE MESSAGE ORDER TO TRANSFUSE 1 UNIT FFP ON THIS PATIENT. MEANT THIS MESSAGE FOR DIFFERENT PATIENT. TRIED TO DC THE ORDER BUT COMPLETED IT INSTEAD. NO FFP WAS GIVEN TO THIS PATIENT.
--- NOTE | 2018-06-04 17:04 | MORECARE ---
CASE MANAGEMENT DISCHARGE SUMMARY PATIENT: MIMI WOLF UNIT: [id number] ADM DATE: 05/31/18 AGE: 62 : 57 SEX: F ROOM/BED: D.2302 AUTHOR: BRIJESH FAYE PHYSICIAN: REFERRING PHYSICIAN: ILANA STEINER MD DATE OF SERVICE: 06/04/18 Discharge Plan Patient Name: MIMI WOLF [facility] [facility] 1955 Planned Disposition: Psych facility Anticipated Discharge Date: Discharge Date: Expected LOS: Initial Reviewer: [email or web address] Initial Review Date: 05/31/2018 Generated: 06/04/18 6:03 pm Comments DCP- Discharge Planning Updated by ZACH: Christina Valenzuela on 06/04/18 12:[address] CM awaiting psych eval to see if patient will need psych placement. CM will continue to follow and assist as needed with discharge planning / needs. DCP- Discharge Planning Updated by ZACH: Christina Valenzuela on 06/02/18 4:[address] CM attempted to visit with patient regarding discharge planning/ needs. Patient currently on vent no family available. CM will continue to follow and assist as needed with discharge planning / needs. Last DP export: 06/04/18 3:16 pm Patient Name: MIMI WOLF Page [id number] at [id number] All edits/amendments must be made on the electronic document DICTATION DATE: 06/04/181702 AUTISM TEACHER: ARMEN 06/04/181702 RPT#: [id number] DC DATE: STATUS: ADM IN [facility] [address] [place] [address] END OF REPORT
--- NOTE | 2018-06-04 17:12 | MORECARE ---
CASE MANAGEMENT DISCHARGE SUMMARY PATIENT: MIMI WOLF UNIT: [id number] ADM DATE: 05/31/18 AGE: 62 : 57 SEX: F ROOM/BED: D.2302 AUTHOR: NEYDA,DOC PHYSICIAN: REFERRING PHYSICIAN: ILANA STEINER MD DATE OF SERVICE: 06/04/18 Discharge Plan Patient Name: MIMI WOLF Facility: [facility]:[place] : 1955 Planned Disposition: Psych facility Anticipated Discharge Date: Discharge Date: Expected LOS: Initial Reviewer: [email or web address] Initial Review Date: 05/31/2018 Generated: 06/04/18 6:12 pm Comments DCP- Discharge Planning Updated by [email or web address]: Christina Valenzuela on 06/04/18 4:[address] Patient Name: MIMI WOLF Admission Status: ER Accout number: [id number] Admission Date: 05-31-2018 : 1955 Admission Diagnosis:POISONING BY UNSP DRUG/MEDS/BIOL SUBST, ACCIDENTAL, INI Attending: ILANA STEINER Current LOS: 4 Anticipated DC Date: Planned Disposition: Psych facility Primary Insurance: MEDICARE A & B Discharge Planning Comments: CM RECIEVED NOTICE THAT PATIENT WAS MEDICALLY STABLE FOR PYSCH PLACEMENT. CM CONTACTED TRANSFER CENTER AND FAXED RECORDS FOR PLACEMENT. CM WILL CONTINUE TO FOLLOW AND ASSIST NEEDED WITH DISCHARGE PLANNING / NEEDS. Concrete Placement Equipment Operator: Christina Valenzuela DCP- Discharge Planning Updated by [id number]: Christina Valenzuela on 06/04/18 12:[address] CM awaiting psych eval to see if patient will need psych placement. CM will continue to follow and assist as needed with discharge planning / needs. DCP- Discharge Planning Updated by [email or web address]: Christina Valenzuela on 06/02/18 4:[address] CM attempted to visit with patient regarding discharge planning/ needs. Patient currently on vent no family available. CM will continue to follow and assist as needed with discharge planning / needs. External Providers External Provider: [facility] Next Contact Date: Service Request Date: Service Type: Resolution: Reviewer: Comments: Last DP export: 06/04/18 4:04 pm Patient Name: MIMI WOLF Page [phone] at 1712 All edits/amendments must be made on the electronic document DICTATION DATE: 06/04/181710 STATEMENT SERVICES REPRESENTATIVE: ARMEN 06/04/181710 RPT#: [id number] DC DATE: STATUS: ADM IN [facility] [address] [place] [address] END OF REPORT
--- NOTE | 2018-06-04 20:33 | NUR ---
[facility] CALLED DUE TO PT COMPLAINT OF MINOR HEADACHE.
--- NOTE | 2018-06-04 21:36 | NUR ---
[facility] CALLED, ASKED IF PT ON O2. PT ON N/C AT 3LPM. [facility] CANNOT RECEIVE PT ON O2. PT ASSESSED AND UPON ASSESSMENT PT N/C CAME OFF WHILE SLEEPING AND SPO2 89% N/C PLACED BACK ON PT AND SPO2 94% BEFORE LEAVING BEDSIDE. WILL CONTINUE TO OBSERVE.
--- NOTE | 2018-06-04 21:42 | NUR ---
[facility] CALLED AGAIN DUE TO NO RETURN CALL AT THIS TIME.
--- NOTE | 2018-06-04 21:46 | NUR ---
RECEIVED CALL FROM [facility]IG[facility] LAMAS. INFORMED OF HX OD. PT LIVER ENXYME LEVEL ELEVATED, NO ABLE TO GIVE TYLENOL AT THIS TIME. STATE THAT THIS MEEDS TO BE ADDRESS WITH PHYSICAN. PT RESTING WITH EYES CLOSED AND CHEST RISING. VITAL SIGNS WNL. WILL CONTINUE TO OBSERVE.
--- NOTE | 2018-06-04 23:03 | NUR ---
[facility] CALLED AND CHECKED ON PT, ASKED IF PT HAD ANY IV AND REPORTED THAT SHE HAD SALINE LOCKED IVS AND ONLY RECEIVING ABX DAILY THRUOGH IV. 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 [facility] STATED WOULD CALL BACK. WILL CONTINUE TO OBSERVE.
[2018-06-05] VITALS (11 sets, daily range): BP systolic 112–127; BP diastolic 63–82
--- NOTE | 2018-06-05 01:16 | NUR ---
PT WITH EYES CLOSED AND CHEST RISING. NO S/S OF DISTRESS. WILL CONTINUE TO OBSERVE.
--- NOTE | 2018-06-05 03:03 | NUR ---
[facility]SFER CENTER CALLED AND REQUEST UPDATED LABS AND VITAL SIGNS, PER SALINE. SENIOR FINANCIAL ACCOUNTANT ON UNIT NOW. RECEIVED FAX NUMBER TO TRANSFER CENTER. TRANSFER CENTER MADE AWARE OF UPCOMING LABS AND THEY REQUESTED TO WAIT AND RECEIVE FAX WITH UPCOMING LAB RESULTS.
--- NOTE | 2018-06-05 05:09 | NUR ---
[facility] REPORTS [facility] WILL ACCEPT IF PT CAN DO OWN ADLS AND DOES NOT NEED A PUREED DIET, WHEN MAKES ROUNDS. ALSO HAS BEEN DENIED BY [facility] AND [facility]. WILL CONTINUE TO OBSERVE.
[2018-06-05 06:04] LABS: BASOPHILS 0.6 % (0-2); EOSINOPHILS 2.3 % (0-7); HEMATOCRIT 33.4 % (36.0-48.0); HEMOGLOBIN 11.1 g/dL (12-16); IMMATURE GRANULOCYTES 0.7 % (0-5); LYMPHOCYTES 31.9 % (15-50); MCH 28.8 pg (26.0-34.0); MCHC 33.2 g/dL (31.0-37.0); MCV 86.8 fL (80.0-100.0); MEAN PLATELET VOLUME 9.9 fL (7.4-10.4); MONOCYTES 11.4 % (2-11); NEUTROPHILS 53.1 % (40-80); PLATELET COUNT 217 10x3/uL (130-400); RBC 3.85 10x6/uL (4.00-5.40); RDW 13.4 % (11.5-14.5); WBC 8.4 10x3/uL (4.8-10.8)
[2018-06-05 07:01] LABS: CALC OSMOLALITY 282 mosm/kg (275-300); CALCIUM 7.9 mg/dL (8.5-10.1); CARBON DIOXIDE 22.8 mmol/L (21.0-32.0); CHLORIDE - SERUM 108 mmol/L (98-107); CREATININE - SERUM 0.7 mg/dL (0.6-1.3); GLUCOSE 109 mg/dL (74-106); POTASSIUM - SERUM 3.6 mmol/L (3.5-5.1); SODIUM 142 mmol/L (136-145); UREA NITROGEN 9 mg/dL (7-18); eGFR NON AFRICAN AMERICAN 90 mL/min (90-120)
[2018-06-05 07:04] LABS: CREATINE KINASE 764 UL (21-215)
--- NOTE | 2018-06-05 07:15 | NUR ---
SPOKE TO FROM TRANSFER CENTER AT [facility]. STATED THAT IF PATIENT IS NO LONGER SUICIDAL, SINCE IT HAS BEEN MORE THAN 48 HOURS SINCE SUICIDE ATTEMPT, DOCTOR WILL HAVE TO FIND SOME OTHER PSYCHIATRIC REASON FOR PATIENT TO BE ADMITTED. IT MUST BE DOCUMENTED PY PHYSICIAN AND RECORDS FAXED TO THEM. WILL NOTIFY PHYSICIAN AND BRANCH BANKER.
--- NOTE | 2018-06-05 09:00 | NUR ---
SPOKE TO TRANSFER CENTER ON THE PHONE FROM [facility] IN [place]. ASKED INFORMATION ABOUT PATIENTS PHYSICAL WELL BEING AND THEN STATED HE WOULD REFER INFORMATION TO PHYSICIAN AND CALL BACK FOR UNIT AND ROOM IF PATIENT IS ACCEPTED.
--- NOTE | 2018-06-05 10:00 | NUR ---
RECEIVED PHONE CALL FROM [facility] THAT [facility]. RAMIREZ SPOKE TO DR. UREÑA AT [facility]. NOTIFIED PATIENT OF PLAN. SHE ACCEPTS.
--- NOTE | 2018-06-05 10:51 | NUR ---
FAXING MOST RECENT VITAL SIGNS TO [facility] PER REQUEST
--- NOTE | 2018-06-05 11:05 | MORECARE ---
CASE MANAGEMENT DISCHARGE SUMMARY PATIENT: MIMI WOLF UNIT: [id number] ADM DATE: 05/31/18 AGE: 62 : 57 SEX: F ROOM/BED: D.2302 AUTHOR: NEYDA,DOC PHYSICIAN: REFERRING PHYSICIAN: ILANA STEINER MD DATE OF SERVICE: 06/05/18 Discharge Plan Patient Name: MIMI WOLF Facility: [facility]:[place] : 1955 Planned Disposition: Psych facility Anticipated Discharge Date: Discharge Date: Expected LOS: Initial Reviewer: [email or web address] Initial Review Date: 05/31/2018 Generated: 06/05/18 12:05 pm Comments DCP- Discharge Planning Updated by [email or web address]: Christina Valenzuela on 06/04/18 4:[address] Patient Name: MIMI WOLF Admission Status: ER Accout number: [id number] Admission Date: 05-31-2018 : 1955 Admission Diagnosis:POISONING BY UNSP DRUG/MEDS/BIOL SUBST, ACCIDENTAL, INI Attending: ILANA STEINER Current LOS: 4 Anticipated DC Date: Planned Disposition: Psych facility Primary Insurance: MEDICARE A & B Discharge Planning Comments: CM RECIEVED NOTICE THAT PATIENT WAS MEDICALLY STABLE FOR PYSCH PLACEMENT. CM CONTACTED TRANSFER CENTER AND FAXED RECORDS FOR PLACEMENT. CM WILL CONTINUE TO FOLLOW AND ASSIST NEEDED WITH DISCHARGE PLANNING / NEEDS. Dairy Technologist: Christina Valenzuela DCP- Discharge Planning Updated by [email or web address]: Christina Valenzuela on 06/04/18 12:[address] CM awaiting psych eval to see if patient will need psych placement. CM will continue to follow and assist as needed with discharge planning / needs. DCP- Discharge Planning Updated by [email or web address]: Christina Valenzuela on 06/02/18 4:[address] CM attempted to visit with patient regarding discharge planning/ needs. Patient currently on vent no family available. CM will continue to follow and assist as needed with discharge planning / needs. External Providers External Provider: OTHER-OTHER Next Contact Date: Service Request Date: Service Type: Resolution: Reviewer: Comments: Last DP export: 06/04/18 4:12 pm Patient Name: FOSTER, MIMI Page [phone] at 1105 All edits/amendments must be made on the electronic document DICTATION DATE: 06/05/181104 RECEIVING MANAGER: ARMEN 06/05/181104 RPT#: [id number] DC DATE: STATUS: ADM IN [facility] [address] [place] [address] END OF REPORT
--- NOTE | 2018-06-05 11:08 | NUR ---
PATIENT IS RESTING IN BED WITH CALL ROSAS IN REACH AWAKE ALERT AND ORIENTED. VSS. WILL CONTINUE TO MONITOR. NO OXYGEN IN USE. O2 SAT 94%. WILL CONTINUE TO MONITOR
--- NOTE | 2018-06-05 11:20 | NUR ---
CALLED REPORT TO NURSE AT [facility] AT THIS TIME.
--- NOTE | 2018-06-05 11:30 | NUR ---
[facility]. GAVE DISCHARGE INSTRUCTIONS AND PATIENT A COPY.
--- NOTE | 2018-06-05 11:34 | NUR ---
SPOKE TO SON ON PHONE AND EXPLAINED THAT SHE IS GOING TO [facility] FOR INPATIENT PSYCH. GAVE PHONE NUMBER OF UNIT.
--- NOTE | 2018-06-05 11:53 | NUR ---
EMS CAME TO DIRECTOR OF PUBLICATIONS PATIENT VIA STRETCHER
--- NOTE | 2018-06-05 12:22 | MORECARE ---
CASE MANAGEMENT DISCHARGE SUMMARY PATIENT: MIMI WOLF UNIT: [id number] ADM DATE: 05/31/18 AGE: 62 : 57 SEX: F ROOM/BED: D.2302 AUTHOR: NEYDA,DOC PHYSICIAN: REFERRING PHYSICIAN: ILANA STEINER MD DATE OF SERVICE: 06/05/18 Discharge Plan Patient Name: MIMI WOLF Facility: [facility]:[place] : 1955 Planned Disposition: Psych facility Anticipated Discharge Date: Discharge Date: 06/05/2018 Expected LOS: Initial Reviewer: [email or web address] Initial Review Date: 05/31/2018 Generated: 06/05/18 1:22 pm Comments DCP- Discharge Planning Updated by [email or web address]: Christina Valenzuela on 06/05/18 11:[address] CM received notice that patient has been accepted to [facility]. Patient accepted by Dr. Mckeon and will go to room 8078 bed 2. Nursing called report. CM faxed additional v/s and lab records. Ambulance service notified. Ambulance transfer paperwork completed. IMM explained and served 06/05/18 @ 1015. CM will continue to follow and assist as needed with discharge planning / needs. DCP- Discharge Planning Updated by [email or web address]: Christina Valenzuela on 06/04/18 4:[address] Patient Name: MIMI WOLF Admission Status: ER Accout number: [id number] Admission Date: 05-31-2018 : 1955 Admission Diagnosis:POISONING BY UNSP DRUG/MEDS/BIOL SUBST, ACCIDENTAL, INI Attending: ILANA STEINER Current LOS: 4 Anticipated DC Date: Planned Disposition: Psych facility Primary Insurance: MEDICARE A & B Discharge Planning Comments: CM RECIEVED NOTICE THAT PATIENT WAS MEDICALLY STABLE FOR PYSCH PLACEMENT. CM CONTACTED TRANSFER CENTER AND FAXED RECORDS FOR PLACEMENT. CM WILL CONTINUE TO FOLLOW AND ASSIST NEEDED WITH DISCHARGE PLANNING / NEEDS. Pinsetter Mechanic Helper: Christina Valenzuela DCP- Discharge Planning Updated by [email or web address]: Christina Valenzuela on 06/04/18 12:[address] CM awaiting psych eval to see if patient will need psych placement. CM will continue to follow and assist as needed with discharge planning / needs. DCP- Discharge Planning Updated by [email or web address]: Christina Valenzuela on 06/02/18 4:[address] CM attempted to visit with patient regarding discharge planning/ needs. Patient currently on vent no family available. CM will continue to follow and assist as needed with discharge planning / needs. Coverage Notice Reviewer: [email or web address] - Christina Valenzuela Notice Issued Date-Time: 06/05/2018 10:15 Notice Type: IM Discharge Notice Notice Delivered To: Patient Relationship to Patient: Self Supervisor Dog License Officer Name: Delivery Method: HAND - Hand Delivered Yue Days: Prior Verbal Notification: Recipient Understood Notice: Yes Recipient Signature: Yes Med Rec Note Co-signed by Attending: Coverage Notice Comment: Last DP export: 06/05/18 10:05 am Patient Name: MIMI WOLF Page [phone] at 1222 All edits/amendments must be made on the electronic document DICTATION DATE: 06/05/18 1222 ACCREDITATION MANAGER: ARMEN 06/05/18 1222 RPT#: [id number] DC DATE:06/05/18 STATUS: DIS IN [facility] [address] [place] [address] END OF REPORT
--- NOTE | 2018-06-05 13:49 | CN ---
PATIENT NAME:MIMI WOLF MEDICAL RECORD: [id number] : 57 LOCATION:[id number] ADMIT DATE: 05/31/18 ACCOUNT: [id number] CONSULTING PHYSICIAN: MICHAEL SERRANO MD REFERRING PHYSICIAN: ILANA STEINER MD DATE OF CONSULTATION: 06/04/2018 PSYCHIATRIC CONSULTATION IDENTIFYING DATA: The patient is 62 years old and she is admitted to the hospital on a voluntary basis. CHIEF COMPLAINT: Overdose. HISTORY OF PRESENT ILLNESS: The patient has had a number of ongoing personal and interrelationship type problems. She decided to kill herself about 6 days ago. She took a large amount of multiple medications and in fact took a photograph of a bowl full of different medicines and send it to her daughter, telling her she intended to kill herself. She was subsequently taken to the [facility] in [place] and transferred here for a higher level of care. The patient was in respiratory distress and required intubation. She has been intubated since 05/30/2018 and was just extubated today or last night. She is awake, alert and talkative. She endorses numerous neurovegetative depressive symptoms and freely admits that it was her intent to kill herself. She is tearful, cooperative and says she is not sure what she would do if she went home. MENTAL STATUS EXAMINATION: The patient is awake, alert and oriented to person, place, time, and somewhat to situation. Her mood is depressed. Her affect is constricted. Thought processes are goal directed. Memory, concentration, and abstraction abilities are mildly impaired. She denies any thoughts of harming others as well as psychotic symptoms. She has vague and noncommittal feelings about her risk of self-harm. ASSESSMENT: 1. Major depression. 2. Polysubstance abuse. PLAN: At this time, the patient will be transferred to an inpatient behavioral unit once medically stabilized. Her long-term prognosis is guarded. She is willing to go on a voluntary basis. I suspect that her long-term wellbeing will be largely contingent upon her avoiding illicit substance use, taking antidepressant medications, and following up with outpatient recommendations for counseling and medication management. TRANSINT:[id number] Voice Confirmation ID: [id number] DOCUMENT ID: [id number] CONSULT REPORT [id number] MIMI WOLF PETER MD at 1349 CC: [id number] DICTATION DATE: 06/04/18 1526 VICE PRESIDENT NETWORK DEVELOPMENT: 06/04/18 1627 DIS IN 06/05/18 [place] [id number] [place] [address]
== END 2018-06-05 11:55 | DRG 917 ==
LOC: D.ER 07:52 → D.ICU 10:33 → D.EDHOLD 10:33 → D.ICU 10:33
PROVIDERS: Emergency Medicine; Family Medicine; Internal Medicine Pulmonary Disease; ADMIT Internal Medicine Nephrology; ATTEND Internal Medicine Nephrology
PROC: 5A1945Z Respiratory Ventilation, 24-96 Consecutive Hours (ICD-10-PCS; principal; 2018-05-31)
DX: T50.902A Poisoning by unspecified drugs, medicaments and biological substances, intentional self-harm, initial encounter (principal); J96.01 Acute respiratory failure with hypoxia; K72.00 Acute and subacute hepatic failure without coma; E87.2 Acidosis; R45.851 Suicidal ideations; M62.82 Rhabdomyolysis; J44.1 Chronic obstructive pulmonary disease with (acute) exacerbation; N39.0 Urinary tract infection, site not specified; D64.9 Anemia, unspecified; E83.51 Hypocalcemia; E03.9 Hypothyroidism, unspecified; R79.89 Other specified abnormal findings of blood chemistry; I10 Essential (primary) hypertension; E78.5 Hyperlipidemia, unspecified; F32.9 Major depressive disorder, single episode, unspecified; M19.90 Unspecified osteoarthritis, unspecified site; E87.6 Hypokalemia; I95.9 Hypotension, unspecified; T43.012A Poisoning by tricyclic antidepressants, intentional self-harm, initial encounter